=== PATIENT | female | born 1995 | race Caucasian/White ===

== ENCOUNTER 2020-04-27 16:34 | Inpatient (IN) | payer OTHER ==
[2020-04-27 17:10] LABS: HEMOGLOBIN 12.6 gm/dl (12.3-15.3); RED BLOOD COUNT 4.38 M/UL (4.00-5.10); WHITE BLOOD COUNT 14.5 K/UL (4.5-11.0)
[2020-04-27] MEDS ORDERED: PRENATAL VITAM1 EAC3 PO (18:22)
[2020-04-28] MEDS ORDERED: IBUPROFEN600 MG PO (22:04)
[2020-04-28] MEDS ORDERED: HYDROCODON-ACE1 EAC6 PO (22:04)
[2020-04-28] MEDS ORDERED: COLACE 100MG C100 MG PO (22:04)
[2020-04-29 06:34] LABS: HEMOGLOBIN 11.8 gm/dl (12.3-15.3)
[2020-04-30] MEDS ORDERED: HYDROCODON-ACE1 EAC6 PO ×2 (13:03→13:06)
== END 2020-04-30 16:00 | disposition home or self-care (01) | DRG 788 ==
LOC: GENOP 16:34 → OB 16:54
PROVIDERS: Obstetrics & Gynecology; ADMIT Obstetrics & Gynecology
PROC: 10907ZC Drainage of Amniotic Fluid, Therapeutic from Products of Conception, Via Natural or Artificial Opening (ICD-10-PCS; 2020-04-27)
PROC: 3E0P7VZ Introduction of Hormone into Female Reproductive, Via Natural or Artificial Opening (ICD-10-PCS; 2020-04-27)
PROC: 3E033VJ Introduction of Other Hormone into Peripheral Vein, Percutaneous Approach (ICD-10-PCS; 2020-04-27)
PROC: 0U7C7ZZ Dilation of Cervix, Via Natural or Artificial Opening (ICD-10-PCS; 2020-04-27)
PROC: 10D00Z1 Extraction of Products of Conception, Low, Open Approach (ICD-10-PCS; principal; 2020-04-28 21:37)
PROC: 3E0234Z Introduction of Serum, Toxoid and Vaccine into Muscle, Percutaneous Approach (ICD-10-PCS; 2020-04-29)
DX: O62.1 Secondary uterine inertia (principal); O61.9 Failed induction of labor, unspecified; Z3A.39 39 weeks gestation of pregnancy; Z37.0 Single live birth; O77.0 Labor and delivery complicated by meconium in amniotic fluid; Z20.822 Contact with and (suspected) exposure to COVID-19; Z23 Encounter for immunization
CPT/HCPCS: 36415; 81001; 82800; 85014; 85018; 85025; 90471; 90715; C9113; J0690; J1170; J1885; J2274; J2405; J2550; J2590; J3010; J7120; U0003